=== PATIENT | male | born 1995 ===

== ENCOUNTER 2018-03-01 17:50 | Emergency (ER) | payer SELFPAY ==
--- NOTE | 2018-03-01 19:03 | UC ---
Complaint Male HPI - HPI Summary HPI Summary: RIGHT TESTICULAR SWELLING, X 2 DAYS + FULLNESS IN HIS RIGHT TESTICLE , NO PAIN , NO INJURY , NO DYSURINA, NO FEVER, NO CHILLS, NO N/V NO NEW PARTNERS, NO DISCHARGE - History of Current Complaint Chief Complaint: UCGU Stated Complaint: PERSONAL Time Seen by Provider: 03/01/18 18:21 Hx Obtained From: Patient Onset/Duration: Gradual Onset, Lasting Days - 2, Still Present Timing: Constant Severity Initially: Mild Severity Currently: Mild Pain Intensity: 0 Pain Scale Used: 0-10 Numeric Location: Testicle - RIGHT SIDE Aggravating Factor(s): Palpation Alleviating Factor(s): Nothing Associated Signs And Symptoms: Negative: Diaphoresis, Back Pain, Fever, Hematuria, Dysuria, Constipation, Blood in Stool, Rectal Pain, Appetite, Nausea , Vomiting(# Of Episodes =), Penile Swelling, Penile Discharge - Allergies/Home Medications Allergies/Adverse Reactions: Allergies Allergy/AdvReac Type Severity Reaction Status Date / Time No Known Allergies Allergy Verified 03/01/18 18:17 PMH/Surg Hx/FS Hx/Imm Hx Previously Healthy: Yes - Surgical History Surgical History: None Surgery Procedure, Year, and Place: denies - Family History Known Family History: Negative: Diabetes - Social History Alcohol Use: Rare Substance Use Type: None Smoking Status (MU): Never Smoked Tobacco Review of Systems Constitutional: Negative Skin: Negative Eyes: Negative ENT: Negative Respiratory: Negative Cardiovascular: Negative Gastrointestinal: Negative Is Patient Immunocompromised?: No All Other Systems Reviewed And Are Negative: Yes Physical Exam Triage Information Reviewed: Yes Appearance: Well-Appearing, No Pain Distress, Well-Nourished Vital Signs: Initial Vital Signs Temp 98.9 F 03/01/18 18:09 Pulse 53 03/01/18 18:09 Resp 18 03/01/18 18:09 BP 130/74 03/01/18 18:09 Pulse Ox 99 03/01/18 18:09 Vital Signs Reviewed: Yes Eye Exam: Normal Eyes: Positive: Conjunctiva Clear ENT: Positive: Normal ENT inspection, Hearing grossly normal, Pharynx normal Neck: Positive: Supple, Nontender, No Lymphadenopathy Respiratory: Positive: Chest non-tender, Lungs clear, Normal breath sounds Cardiovascular: Positive: RRR, No Murmur, Pulses Normal Abdominal Exam: Normal Abdomen Description: Positive: Nontender, Soft. Negative: CVA Tenderness (R), CVA Tenderness (L), Distended, Guarding Bowel Sounds: Positive: Present Neurological Exam: Normal UC Physical Exam Vital Signs On Initial Exam: Initial Vitals Temp Pulse Resp BP Pulse Ox 98.9 F 53 18 130/74 99 03/01/18 18:09 03/01/18 18:09 03/01/18 18:09 03/01/18 18:09 03/01/18 18:09 - Genitalia Exam Male Genitalia: Circumcised Male Genitalia Cont.: Right: Testicle Mass, Testicles With Swelling, Bilateral: Testicles Descended, Testicles Non-Tender Complaint Male Course/Dx - Differential Dx/Diagnosis Provider Diagnoses: EPIDIDYMITIS Discharge - Sign-Out/Discharge Documenting (check all that apply): Patient Departure All imaging exams completed and their final reports reviewed: No Studies - Discharge Plan Condition: Stable Disposition: HOME Prescriptions: Levofloxacin TAB* [Levaquin TAB*] 500 mg PO DAILY #10 tab Patient Education Materials: Epididymo-Orchitis (ED) Referrals: No Primary Care Phys,NOPCP [Primary Care Provider] - 1 Day Additional Instructions: STARTING ANTIBIOTICS FOR EPIDIDYMITIS YOU WOULD NEED AN TESTICULAR US MAY GO TO ED OR WE HAVE US AT THE URGENT CARE UNTIL 330 - Billing Disposition and Condition Condition: STABLE Disposition: Home
--- NOTE | 2018-03-03 16:41 | RAD ---
Indication: RIGHT testicular pain. Palpable lump inferiorly. Comparison: No relevant prior exams available on the [facility] for [place]. Technique: Testicular ultrasound. Report: Normal echotexture 4.5 x 2.3 x 3.2 cm RIGHT testicle and 4.2 x 1.9 x 3.3 cm LEFT testicle with symmetric normal range vascularity. No intratesticular lesions evident. 1.0 x 1.5 cm RIGHT epididymis head. Enlarged RIGHT epididymal body and tail with hyperemia on Doppler. Unremarkable 1.2 x 1.4 cm LEFT epididymis head with normal range vascularity. Small bilateral hydroceles. IMPRESSION: #. The constellation of findings is most consistent with RIGHT epididymitis. #. No compelling hyperemia at the RIGHT testicle to indicate associated orchitis. #. No evidence for testicular torsion.
== END 2018-03-01 18:41 | disposition home or self-care (01) ==
LOC: UCEAST 17:50
DX: N45.1 Epididymitis (principal)
CPT/HCPCS: 76870; 99202; G0463

== ENCOUNTER → 2018-03-03 13:37 | Emergency (ER) | payer SELFPAY ==
--- NOTE | 2018-03-03 16:50 | UC ---
Complaint Male HPI - HPI Summary HPI Summary: 22 yo male presents with right testicular pain. He tells me that he was seen 2 days ago and dx'd with epididymitis and rx'd levaquin. He was told to return in 1 day for an ultrasound to verify this. He is here today for an ultrasound. He says his symptoms have slightly improved. Denies dysuria, fever, or chills. - History of Current Complaint Hx Obtained From: Patient Timing: Constant Severity Initially: Moderate Severity Currently: Moderate Pain Intensity: 6 Pain Scale Used: 0-10 Numeric - Allergies/Home Medications Allergies/Adverse Reactions: Allergies Allergy/AdvReac Type Severity Reaction Status Date / Time No Known Allergies Allergy Verified 03/01/18 18:17 PMH/Surg Hx/FS Hx/Imm Hx - Additional Past Medical History Additional PMH: None - Surgical History Surgical History: None Surgery Procedure, Year, and Place: denies - Family History Known Family History: Negative: Diabetes - Social History Occupation: Student Lives: Dormitory/Roommates Alcohol Use: Rare Substance Use Type: None Smoking Status (MU): Never Smoked Tobacco Review of Systems Constitutional: Negative Skin: Negative Respiratory: Negative Cardiovascular: Negative Genitourinary: Other - Testicular pain Neurovascular: Negative Neurological: Negative Psychological: Negative All Other Systems Reviewed And Are Negative: Yes Physical Exam - Summary Physical Exam Summary: GENERAL: NAD. WDWN. No pain distress. NECK: Supple. Nontender. No lymphadenopathy. CHEST: No accessory muscle use. Breathing comfortably and in no distress. CV: Pulses intact. Cap refill <2seconds NEURO: Alert. PSYCH: Age appropriate behavior. Triage Information Reviewed: Yes Vital Signs Reviewed: Yes Complaint Male Course/Dx - Course Course Of Treatment: US: IMPRESSION: #. The constellation of findings is most consistent with RIGHT epididymitis. #. No compelling hyperemia at the RIGHT testicle to indicate associated orchitis. #. No evidence for testicular torsion. He declined testicular exam today. Pt notified of results and advised to continue anbx. - Differential Dx/Diagnosis Provider Diagnoses: RIGHT epididymitis Discharge - Sign-Out/Discharge Documenting (check all that apply): Patient Departure All imaging exams completed and their final reports reviewed: Yes - Discharge Plan Condition: Stable Disposition: HOME Referrals: No Primary Care Phys,NOPCP [Primary Care Provider] - Additional Instructions: If you develop a fever, shortness of breath, chest pain, new or worsening symptoms - please call your PCP or go to the ED. - Billing Disposition and Condition Condition: STABLE Disposition: Home
== END | disposition home or self-care (01) ==
LOC: UCEAST 13:37
DX: N45.1 Epididymitis (principal)
CPT/HCPCS: 99211; G0463